=== PATIENT | female | born 1980 | race Caucasian/White ===

== ENCOUNTER 2016-08-24 12:22 | Inpatient (IN) | payer MEDICAID ==
[2016-08-24] MEDS ORDERED: LIDOCAINE 1% 30 ML SDV SC PRN (12:49)
[2016-08-24] MEDS ORDERED: EPSOM SALT 454 GM TP PRN (12:49)
[2016-08-24] MEDS ORDERED: OXYTOCIN/RINGERS LACTATE 1,000 ML IV PRN (12:49)
[2016-08-24] MEDS ORDERED: TERBUTALINE SULFATE 1 MG/ML VIAL IV PRN (12:49)
[2016-08-24] MEDS ORDERED: LR 1,000 ML IV PRN (12:49)
[2016-08-24] MEDS ORDERED: OLIVE OIL 118 ML BTL MISC PRN (12:49)
[2016-08-24 13:26] LABS: % IMMATURE GRANULYOCYTES 0.9 % (0.0-1.1); ABSOLUTE IMMATURE GRANULOCYTES 0.09 10^3/uL (0.00-0.10); ADD DIFF? NO; ADD MORPH? NO; ADD SCAN? NO; ATYPICAL LYMPHOCYTE FLAG 0 (0-99); FRAGMENT RBC FLAG 0 (0-99); HEMATOCRIT 39.3 % (38.0-47.0); HEMOGLOBIN 13.4 g/dL (12.6-16.3); LEFT SHIFT FLG 10 (0-99); LIPEMIA HEMOLYSIS FLAG 90 (0-99); MEAN CELL HEMOGLOBIN 31.1 pg (27.9-34.1); MEAN CELL HEMOGLOBIN CONCENTR. 34.1 g/dL (32.4-36.7); MEAN CELL VOLUME 91.2 fL (81.5-99.8); MEAN PLATELET VOLUME 10.8 fL (8.7-11.7); PLATELET CLUMPS FLAG 0 (0-99); PLATELET COUNT 146 10^3/uL (150-400); RED BLOOD CELL COUNT 4.31 10^6/uL (4.18-5.33); RED CELL DISTRIBUTION WIDTH 13.6 % (11.5-15.2)
[2016-08-24] MEDS ORDERED: OLIVE OIL 118 ML BTL ONE (13:26)
[2016-08-24] MEDS ORDERED: AMMONIA AROMATIC 1 EACH AMP IH ONE (13:26)
[2016-08-24] MEDS ORDERED: TERBUTALINE SULFATE 1 MG/ML VIAL ONE (13:26)
[2016-08-24] MEDS ORDERED: OXYTOCIN 10 UNIT/ML VIAL ONE (13:27)
[2016-08-24] MEDS ORDERED: MISOPROSTOL 200 MCG TAB ONE (13:27)
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
[2016-08-24] MEDS: IBUPROFEN 600 MG TAB PO PRN ×2 (15:33→21:16)
--- NOTE | 2016-08-24 15:59 | OBPROC ---
- Labor and Delivery Onset of Contractions Date: 08/24/16 Onset of Contractions Time: 09:30 Onset of Contractions Type: Spontaneous Rupture of Membranes Date: 08/24/16 Rupture of Membranes Time: 14:18 Rupture of Membranes Type: Spontaneous Amniotic Fluid Color: Clear (but light mec noted at delivery) Dilation Complete Time: 14:18 Delivery Type: Spontaneous Placenta Delivery Date: 08/24/16 Placenta Delivery Time: 15:12 Episiotomy/Laceration: 1st Degree, Midline, Perineal (and bilateral periurethral ) Repair: Other (Specify) (none needed) EBL: 350 Complications: Nuchal Cord (x1 tight and cut on perineum) - Medications Labor Augmentation/Induction Meds Used: None - [place] Info Infant A Delivery Date: 08/24/16 Delivery Time: 15:04 Sex of Infant: Male Score (1 Min): 8 Score (5 Min): 9
[2016-08-24] MEDS ORDERED: ACETAMINOPHEN 325 MG TAB PO PRN (16:00)
[2016-08-24] MEDS ORDERED: HYDROCODONE/APAP 5/325 TAB PO PRN (16:00)
[2016-08-24] MEDS ORDERED: DOCUSATE SODIUM 100 MG CAP PO PRN (16:00)
[2016-08-24 22:11] VITALS: RESP 16
[2016-08-25] MEDS: IBUPROFEN 600 MG TAB PO PRN ×3 (03:08→15:48)
--- NOTE | 2016-08-25 08:56 | SOAPPROG ---
SOAP Progress Note Assessment/Plan: Assessment: well pain well managed vs wnl scat rubra lochia ff@u voiding without difficulty anemic Plan:discharge to home with instructions. discussed depression, pain management , , depression, ss infection slow return to activity, pericare, rest, fu 4 weeks for mood check and 6 weeks pp 08/25/16 08:54 Subjective: doing well. Possibly wanting to go home today. well. PAin well managed some soreness perineally Objective: Vital Signs Temp Pulse Resp BP Pulse Ox 37.2 C 97 16 103/69 08/24/16 21:10 08/24/16 21:10 08/24/16 21:10 08/24/16 21:10 Laboratory Results 08/25/16 03:30 08/24/16 08/25/16 08/26/16 05:59 05:59 05:59 Output Total 350 Balance -350 - Time Spent With Patient Time Spent With Patient: 20 minutes - Pending Discharge Pending Discharge Date: 08/25/16 Pending Discharge Time: 11:00 Physical Exam - Physical Exam General Appearance: WD/WN, alert Pelvic Exam: vaginal bleeding (scant rubra lochia) Skin: normal color, warm/dry Extremities: normal range of motion, swelling (minimally), Kiya's sign ( negative bilaterally) Neuro/Psych: no motor/sensory deficits, alert, normal mood/affect, oriented x 3 ICD10 Worksheet Patient Problems: Problems Problem Status Onset RhD negative Acute (spontaneous vaginal delivery) Acute Torsion of ovary, ovarian pedicle and fallopian tube Acute
[2016-08-25] MEDS ORDERED: IRON POLYSAC/IRON HEME 28 MG TAB PO SCH (09:00)
[2016-08-25 10:18] VITALS: BP 108/74; PULSE 79; TEMP 98.8
== END 2016-08-25 17:15 | disposition home or self-care (01) | DRG 775 ==
LOC: OBSVTOIN 12:22 → FLD 12:22 → FOB 18:06
PROVIDERS: ADMIT Obstetrics & Gynecology; ATTEND Obstetrics & Gynecology
PROC: 10E0XZZ Delivery of Products of Conception, External Approach (ICD-10-PCS; principal; 2016-08-24)
DX: O70.0 First degree perineal laceration during delivery (principal); O69.9XX0 Labor and delivery complicated by cord complication, unspecified, not applicable or unspecified; O90.81 Anemia of the puerperium; Z3A.39 39 weeks gestation of pregnancy; Z37.0 Single live birth; Z91.040 Latex allergy status
CPT/HCPCS: J2590; J3105